=== PATIENT | male | born 1980 ===

== ENCOUNTER 2020-04-05 20:16 | Emergency (ER) | payer OTHER ==
[~2020-04-05] VITALS: Ht 175.3 cm; Wt 70.2 kg
[2020-04-05 21:48] VITALS: BP 107/70
== END 2020-04-05 21:49 | disposition home or self-care (01) ==
LOC: M ED 20:16
DX: N48.89 Other specified disorders of penis (principal); F17.200 Nicotine dependence, unspecified, uncomplicated; F17.220 Nicotine dependence, chewing tobacco, uncomplicated